=== PATIENT | male | born 2000 | race Two or more races ===

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

== ENCOUNTER 2021-03-09 15:51 | Emergency (ER) | payer MEDICAID ==
[~2021-03-09] VITALS: Ht 177.8 cm; Wt 99.8 kg
[2021-03-09 15:51] VITALS: BP 0/0
[2021-03-09] MEDS ORDERED: SODIUM BICARBONATE 8.4 % INJ 50ML VIAL IV ONE (15:52)
[2021-03-09] MEDS ORDERED: CALCIUM CHLOR(10%) 100MG/ML 10ML SYRINGE IV ONE (15:52)
[2021-03-09] MEDS ORDERED: EPINEPHrine HCL 1 MG/10 ML SYRG IV ONE ×2 (15:52)
[2021-03-09] MEDS ORDERED: EPINEPHrine HCL 1 MG/10 ML SYRG ONE (15:58)
[2021-03-09] MEDS ORDERED: SODIUM BICARBONATE 8.4% INJ 50ML SYRINGE ONE (16:03)
== END 2021-03-09 21:24 ==
LOC: EDBD 15:51 → ER 15:51
DX: I46.9 Cardiac arrest, cause unspecified (principal); R41.82 Altered mental status, unspecified; T40.5X1A Poisoning by cocaine, accidental (unintentional), initial encounter; Y92.89 Other specified places as the place of occurrence of the external cause
CPT/HCPCS: 31500; 92950; 99285; J0171